=== PATIENT | female | born 1975 | race Hispanic/Latino ===

== ENCOUNTER 2020-06-30 10:58 | Emergency (ER) | payer BC, SELFPAY | END 2020-06-30 12:10 | disposition home or self-care (01) | LOC: MADERS 10:58 | DX: R42 Dizziness and giddiness (principal); R11.2 Nausea with vomiting, unspecified; E03.9 Hypothyroidism, unspecified; Z79.899 Other long term (current) drug therapy | CPT/HCPCS: 99283 ==